=== PATIENT | female | born 1940 | race Caucasian/White ===

== ENCOUNTER 2016-07-25 15:00 | Inpatient (IN) ==
[2016-07-25] MEDS ORDERED: 0.9 % SODIUM CHLORIDE 1,000 ML IV ONE ×2 (15:16→16:07)
[2016-07-25] MEDS ORDERED: ONDANSETRON 4 MG/2 ML VIAL IV ONE (15:21)
[2016-07-25 15:48] LABS: Mean Corpuscular HGB Conc 33.6 g/dL (31.0-36.0); Mean Corpuscular Hemoglobin 29.2 pg (26.0-34.0); Platelet Count 246 K/mcL (140-440); RBC 4.39 M/mcL (4.00-5.20); Red Cell Distribution Width 13.4 % (11.5-14.5)
[2016-07-25] MEDS ORDERED: OSELTAMIVIR PHOSPHATE 75 MG CAPSULE PO ONE (15:58)
--- NOTE | 2016-07-25 16:06 | Emergency Department Note ---
Weakness HPI - General Chief complaint: Weakness Stated complaint: sob, cough, nausea Time Seen by Provider: 07/25/16 16:03 Source: patient Mode of arrival: wheelchair Limitations: no limitations - History of Present Illness HPI Narrative: 76-year-old female states that she started feeling achy and feverish since 4 days ago. She states she had a mild cold. The week prior. Now she is showing achy and unable to get out of bed. Due to the weakness. PT is having some cough. Has had some fever and chills, achiness CURRENT TEMPERATURE IS 99.3. - Related Data Home Medications Medication Instructions Recorded Confirmed aspirin 81 mg tablet,delayed 162 mg PO QDAY tab 03/14/15 01/29/16 release losartan 50 mg tablet 50 mg PO DAILY tab 03/14/15 01/29/16 multivitamin tablet 1 tab PO DAILY tab 03/14/15 01/29/16 omeprazole 20 mg capsule,delayed 20 mg PO ACB cap 03/14/15 01/29/16 release sertraline 50 mg tablet 50 mg PO DAILY tab 03/14/15 01/29/16 Diltiazem [Cardizem Cd] 120 mg PO DAILY 10/12/15 01/29/16 Gabapentin [Neurontin] 300 mg PO HS 10/12/15 01/29/16 L.acidoph,Paracasei, B.lactis 1 each PO DAILY 10/12/15 01/29/16 [Probiotic] Loperamide [Imodium] 2 mg PO PRN PRN 10/12/15 01/29/16 Thyroid Support 1 cap PO DAILY 10/12/15 01/29/16 Vitamin D3 5,000 unit PO DAILY 10/12/15 01/29/16 Bactrim Ds Tablet 1 tablet PO BID 10/16/15 01/29/16 Previous Rx's Medication Instructions Recorded Aspirin 320 mg PO DAILY #30 tab.chew 10/17/15 Docusate Sodium [Colace] 100 mg PO BID #60 capsule 10/17/15 HYDROcodone/APAP 10/325MG [[place] 1 - 2 tab PO Q4HP PRN #90 tablet 10/17/15 10/325Mg] Allergies Allergy/AdvReac Type Severity Reaction Status Date / Time lidocaine [LIDOCAINE] AdvReac Severe CRAZY Verified 01/29/16 20:21 Beta-Blockers AdvReac Intermediate intolerance Verified 01/29/16 20:21 (Beta-Adrenergic Bloc digoxin [From Lanoxin] AdvReac Intermediate intolerance Verified 01/29/16 20:21 epinephrine AdvReac Intermediate tachycardia Verified 01/29/16 20:21 ezetimibe [From Zetia] AdvReac Intermediate Intolerance Verified 01/29/16 20:21 hydrocodone [HYDROCODONE] AdvReac Intermediate Gastrointestinal Verified 20:21 Upset indapamide [From Lozol] AdvReac Intermediate Intolerance Verified 01/29/16 20:21 methyldopa [From Aldomet] AdvReac Intermediate Intolerance Verified 01/29/16 20: 21 ramipril [From Altace] AdvReac Intermediate vertigo Verified 01/29/16 20:21 Review of Systems Constitutional: Reports: fever, chills Eyes: Denies: eye pain ENT ED: Denies: ear pain Cardiovascular: Denies: chest pain Respiratory: Reports: cough. Denies: dyspnea Gastrointestinal: Denies: abdominal pain Genitourinary: Denies: urgency, dysuria Musculoskeletal: Denies: back pain Integumentary: Denies: rash Neurological: Reports: weakness. Denies: headache, numbness, paresthesias, confusion, abnormal gait, vertigo Psychiatric: Denies: anxiety, depression Endocrine: Denies: fatigue Hematological/Lymphatic: Denies: easy bleeding Allergic/Immunologic: Denies: facial swelling Past Medical History - Past Medical History Medical history: Reports: atrial fibrillation, hyperlipidemia, hypertension, other (spinal stenosis) Surgical history ED: Reports: angioplasty/stent, hysterectomy, orthopedic, other (several shoulder surgeries) Physical Exam - General Limitations: no limitations Course Vital Signs Temperature 99.3 F 07/25/16 15:00 Pulse Rate 66 07/25/16 15:00 Respiratory Rate 16 07/25/16 15:00 Blood Pressure 120/67 07/25/16 15:00 Pulse Oximetry (%) 96 07/25/16 15:00 Temperature 99.3 F 07/25/16 15:00 Pulse Rate 61 07/25/16 16:49 Respiratory Rate 16 07/25/16 15:00 Blood Pressure 129/67 07/25/16 16:49 Pulse Oximetry (%) 94 07/25/16 16:02 Weakness - MDM Narrative Medical decision making narrative: Influenza test is positive. Influenza A and the WBC is 5100 chem panel normal. S x-ray normal. Vital signs stable. Lactic acid 1.3. The states she is too weak, unable to get out of bed. Dr. Rascon contacted. Patient minute for observation. Influenza A - Lab Data Result diagrams: 07/25/16 15:20 07/25/16 15:20 Lab Results 07/25/16 07/25/16 07/25/16 Range/Units 15:20 15:20 15:20 WBC 5.1 (4.5-11.0) K/mcL RBC 4.39 (4.00-5.20) M/mcL Hgb 12.8 (12.0-15.0) g/dL Hct 38.2 (36.0-48.0) % MCV 87.0 (80.0-100.0) fL MCH 29.2 (26.0-34.0) pg MCHC 33.6 (31.0-36.0) g/dL RDW 13.4 (11.5-14.5) % Plt Count 246 (140-440) K/mcL MPV 8.0 (7.4-10.4) fL Total Counted 100 Seg Neutrophils % 53 (38-78) % Band Neutrophils % 15 H (0-10) % Lymphocytes % 23 (15-49) % Monocytes % (Manual) 7 (1-9) % Eosinophils % (Manual) 1 (0-7) % Basophils % (Manual) 1 (0-2) % Platelet Estimate Normal (NORMAL) RBC Morphology Normal (NORMAL) VBG Lactic Acid 1.3 (0.5-2.2) mmol/L Sodium 134 (133-145) mmol/L Potassium 4.1 (3.3-5.1) mmol/L Chloride 96 (96-108) mmol/L Carbon Dioxide 24 (22-30) mmol/L Anion Gap 14.0 (8-16) BUN 10 (8-23) mg/dl Creatinine 1.0 (0.6-1.1) mg/dl GFR Calculation 55 Glucose 120 H (70-105) mg/dL Calcium 9.1 (8.6-10.4) mg/dl Total Bilirubin 0.3 (0.0-1.0) mg/dL AST 19 (0-37) U/l ALT 11 (0-40) U/l Alkaline Phosphatase 80 (39-117) U/L Total Protein 7.4 (5.9-8.4) gm/dL Albumin 4.0 (3.2-5.2) gm/dL Globulin 3.4 (2.2-3.7) gm/dL Albumin/Globulin Ratio 1.2 (1.0-2.3) Disposition Clinical Impression: Influenza A Disposition: Xfer As Outpt/Obs ([facility]) Condition: Good Referrals: Melvin Hudson MD [Primary Care Provider] -
[2016-07-25 16:10] LABS: ALT/SGPT 11 U/l (0-40); Albumin/Globulin Ratio 1.2 (1.0-2.3); Alkaline Phosphatase 80 U/L (39-117); Blood Urea Nitrogen 10 mg/dl (8-23)
[2016-07-25 16:19] LABS: Band Neutrophils % 15 % (0-10); Basophils % (Manual) 1 % (0-2); Eosinophils % (Manual) 1 % (0-7); Lymphocytes % 23 % (15-49); Monocytes % (Manual) 7 % (1-9); Platelet Estimate NORMAL (NORMAL); RBC Morphology NORMAL (NORMAL); Segmented Neutrophils % 53 % (38-78)
--- NOTE | 2016-07-25 16:29 | XRay Report ---
CLINICAL INFORMATION: Cough COMPARISON: 03/16/2014 FINDINGS: Mild cardiomegaly is unchanged. Mediastinum and pulmonary vessels are normal. Is minor bibasilar atelectasis - no infiltrates or effusions IMPRESSION: No acute disease. Interpreted and Authenticated by: Joe Dave 07/25/16
[2016-07-25] MEDS: 0.9 % SODIUM CHLORIDE 1,000 ML IV SCH (18:40)
[2016-07-25 18:56] LABS: Appearance,Urine CLEAR; Bacteria,Urine MOD /hpf (0); Bilirubin,Urine NEG (NEG); Color,Urine STRAW; Glucose,Urine (UA) NEGATIVE (NEG); Leukocyte Esterase,Urine 250 /uL (NEG); Mucus,Urine FEW /hpf (0); Nitrate,Urine NEG (NEG); Protein,Urine NEG (NEG); Specific Gravity,Urine 1.002 (1.000-1.035); Urine Blood 0.03 mg/dL (<0.03); Urine RBC < 1 /hpf (0-1); Urine Squamous Epithelial Cell 1 /hpf (0-4); Urine Transitional Epi Cells < 1 /hpf (0-2); Urine WBC 18 /hpf (0-4); Urobilinogen,Urine NEG (NEG)
[2016-07-25] MEDS ORDERED: LOPERAMIDE 2 MG CAPSULE PO PRN (20:18)
[2016-07-25] MEDS: GABAPENTIN 100 MG CAPSULE PO SCH (21:07)
[2016-07-25] MEDS: cefTRIAXone 2 GM in DEXTROSE 5% IN WATER 50 ML IV SCH (22:42)
[2016-07-25] MEDS: ACETAMINOPHEN 325 MG TABLET PO PRN (23:41)
--- NOTE | 2016-07-26 00:48 | History and Physical Report ---
DATE OF ADMISSION: 07/25/2016 PRIMARY CARE PHYSICIAN: Melvin Hudson MD DATE OF ADMISSION: 07/25/2016 REASON FOR ADMISSION: Weakness, diarrhea, shortness of breath, cough and fever. HISTORY OF CHIEF COMPLAINT: The patient is a 76-year-old who lives with her , Andres, in [place] and was in her baseline state of health until roughly 2 weeks prior to presentation, noticed worsening weakness, myalgia, fever, along with also diarrhea. The patient had a sick contact including her and [id number]. Over the next 7 to 10 days the patient has progressively deteriorated to the point she is barely able to function, unable to get out of bed and perform activities of daily living. She has associated cough, dyspnea, along with multiple joint pain. She denies dysuria, headache, photophobia. She further denies abdominal pain, nausea, chest pain, palpitation, with increasing weakness. She came to [facility] Emergency Room. Initial workup was significant for influenza A positive. However, labs were essentially unremarkable except for mild bandemia at 15 percent and a normal biochemical profile. Hospitalist Service was consulted in light of significant deterioration over the last 10 days and high risk decompensation if discharged. At the time of examination, the patient is alert and oriented. She is able to provide most of the history. She is slightly distressed, anxious. REVIEW OF SYSTEMS: Other than that, a 10-point review of system was performed and negative except the ones discussed above. PAST MEDICAL HISTORY: 1. Anxiety disorder. 2. Hypertension. 3. Neuropathy. 4. GERD. 5. Intermittent diarrhea. PAST SURGICAL HISTORY: 1. History of arthroscopy, right shoulder. 2. Hysterectomy. FAMILY HISTORY: Significant for emphysema in mother along with arthritis along with hypertension. Sibling with coronary artery disease and hypertension. SOCIAL HISTORY: The patient is to her , Andres, and lives in [place]. She is retired. No history of alcohol, smoking, substance abuse. CODE STATUS: FULL CODE. PHYSICAL EXAMINATION: GENERAL: The patient is alert and oriented. Denies any active distress. BMI 30. Height 5 feet. VITAL SIGNS: Blood pressure 129/59, respiratory rate 16, temperature 99.3, pulse 66, sats 96 percent on room air. HEENT: Pupils symmetric. Oral cavity is dry. No ear or nose discharge. Head is normocephalic and atraumatic. NECK: No lymphadenopathy. HEART: S1, S2, regular rate and rhythm. No murmur. CHEST: Clear to auscultation. ABDOMEN: Soft and nontender. LOWER EXTREMITIES: No cyanosis or clubbing. No joint swelling. SKIN: No suspicious lesions. PSYCHIATRIC: Alert and cooperative. No anxiety. NEURO: Nonfocal. LABS AND IMAGING: Hemoglobin 12.8, white count 5.1, platelets 246, bands 15 percent. Lactic acid 1.3. Sodium 134, potassium 4.1, creatinine 1, and BUN 10. LFTs unremarkable. UA: 18 WBCs. ASSESSMENT AND PLAN: A 76-year-old with influenza A and significant weakness along with complicated urinary tract infection. 1. Influenza A. Continue supportive management with crystalloids, antipyretics, along with Tamiflu. 2. Complicated urinary tract infection. Continue Rocephin. 3. Severe weakness due to acute viral syndrome. Other prior medical issues, includin. History of anxiety disorder. Continue sertraline. 2. Hypertension. Continue diltiazem. 3. Neuropathy. Continue gabapentin. 4. Gastroesophageal reflux disease. Continue proton pump inhibitor. The patient will be admitted as observation. AA:devyn Job ID: [id number] Doc ID: [id number] Luisito Hudson MD MTDD
[2016-07-26] MEDS: PANTOPRAZOLE 40 MG TABLET PO SCH (08:17)
[2016-07-26] MEDS: ASPIRIN 325 MG ENTERIC COATED TABLET PO SCH (09:43)
[2016-07-26] MEDS: SERTRALINE 50 MG TABLET PO SCH (09:43)
[2016-07-26] MEDS: DILTIAZEM 120 MG CAP.XL.24H PO SCH (09:43)
[2016-07-26] MEDS: OSELTAMIVIR PHOSPHATE 75 MG CAPSULE PO SCH ×2 (09:43→20:46)
[2016-07-26] MEDS: LOSARTAN 50 MG TABLET PO SCH (09:43)
--- NOTE | 2016-07-26 10:49 | Internal Med Progress Note ---
Medical - PN: Subj Patient information: Note initiated : 07/26/16 at 10:47 am Service Date, if different from initiated Date: [] Patient: Cindy Toledo 76 y/o F admitted on 07/25/16 for SOB, Cough, Nausea/ Influenza A, Weakness, UTI. Chief Complaint: [] Interval history: 07/255-90-ncho-old admitted with acute influenza and complicated UTI with high- grade fever and weakness. started on Tamiflu. Continue antibiotic coverage for UTI. On supportive management 07/26-patient doing better. No overnight events. Improved mentation and tolerating physical therapy and diet. No family at bedside. Continue supportive treatment along with physical therapy. GNR on cultures. - Constitutional Vitals: Vital Signs Temp Pulse Resp BP Pulse Ox 101.5 F H 82 16 118/80 95 07/26/16 10:07 07/26/16 07:07 07/26/16 07:07 07/26/16 07:07 07/26/16 09:51 Period Temp Pulse Resp BP Sys/Egan Pulse Ox Last 24 Hr 99.1 F-102.7 F 60-82 16-18 118-145/73-80 2-98 Intake and Output 07/25/16 07/26/16 07/26/16 21:59 05:59 13:59 Intake Total 400 / 400 920 / 920 Output Total 300 / 300 550 / 550 800 / 800 Balance -300 / -300 -150 / -150 120 / 120 Weight 155 lb 8 oz Intake & Output: Intake & Output 07/25/16 07/26/16 07/26/16 21:59 05:59 13:59 Intake Total 400 / 400 920 / 920 Output Total 300 / 300 550 / 550 800 / 800 Balance -300 / -300 -150 / -150 120 / 120 Weight 155 lb 8 oz Intake: IV 50 / 50 Dextrose 5% in Water 50 50 / 50 ml @ 100 mls/hr IV DAILY HERNANDEZ with Rocephin 2 gm Rx #:[id number] Oral 350 / 350 920 / 920 Output: Void Amount 300 / 300 550 / 550 800 / 800 Other: Meal Breakfast Percent of Meal Consumed 75% Feeding Ability Independent # Voids 1 3 General appearance: cooperative, no acute distress Exam: lert oriented nonlabored breathing No anxiety Nondistended abdomen Medical - PN: Obj Da - Labs CBC & Chem 7: 07/25/16 15:20 07/25/16 15:20 Meds: Medications Acetaminophen (Tylenol) 650 mg PO Q6HP PRN PRN Reason: PAIN/FEVER > 101 Last Admin: 07/25/16 23:41 Dose: 650 mg Aspirin (Ecotrin) 325 mg PO DAILY [facility] Last Admin: 07/26/16 09:43 Dose: 325 mg Diltiazem HCl (Cardizem Cd) 120 mg PO DAILY [facility] Last Admin: 07/26/16 09:43 Dose: 120 mg Gabapentin (Neurontin) 400 mg PO HS [facility] Last Admin: 07/25/16 21:07 Dose: 400 mg Sodium Chloride (Sodium Chloride 0.9%) 1,000 mls @ 50 mls/hr IV .Q20H [facility] Last Admin: 07/25/16 18:40 Dose: 50 mls/hr Ceftriaxone Sodium 2 gm/ (Dextrose) 50 mls @ 100 mls/hr IV DAILY [facility] Last Infusion: 07/25/16 23:20 Dose: Infused Loperamide HCl (Imodium) 2 mg PO PRN PRN PRN Reason: Diarrhea Last Admin: 07/25/16 21:07 Dose: 2 mg Losartan Potassium (Cozaar) 50 mg PO DAILY [facility] Last Admin: 07/26/16 09:43 Dose: 50 mg Oseltamivir Phosphate (Tamiflu) 75 mg PO BID [facility] Stop: 07/31/16 21:00 Last Admin: 07/26/16 09:43 Dose: 75 mg Pantoprazole Sodium (Protonix) 40 mg PO QAMAC [facility] Last Admin: 07/26/16 08:17 Dose: 40 mg Sertraline HCl (Zoloft) 50 mg PO DAILY [facility] Last Admin: 07/26/16 09:43 Dose: 50 mg Medical - PN: A/P - Time Spent With Patient Total time spent is greater than 50% in coordination of care (as documented) at patient's floor/unit and/or counseling patient: 15 - 24 minutes (1) Acute viral syndrome Status: Acute Assessment and plan: * acute viral syndrome secondary to influenza A-continue Tamiflu/supportive management * Complicated UTI secondary to gram-negative sil continue antibiotic coverage. De-escalate based on culture results * Anxiety disorder continue sertraline * Hypertension on diltiazem/valsartan * neuropathy on gabapentin Plan * Antibiotic coverage and de-escalate based on cultures * supportive management/antipyretics/Tamiflu * Pre-existing medical condition management as above * Physical therapy Current Visit: Yes Medical - PN: Qual - VTE Deep Vein Thrombosis/Pulmonary Embolism Present on Admission: No
[2016-07-26] MEDS: cefTRIAXone 2 GM in DEXTROSE 5% IN WATER 50 ML IV SCH (15:05)
[2016-07-26] MEDS: 0.9 % SODIUM CHLORIDE 1,000 ML IV SCH (15:05)
[2016-07-26] MEDS: GABAPENTIN 100 MG CAPSULE PO SCH (20:46)
[2016-07-27 06:54] LABS: Mean Cell Volume 88.7 fL (80.0-100.0); Mean Corpuscular HGB Conc 33.1 g/dL (31.0-36.0); Mean Corpuscular Hemoglobin 29.3 pg (26.0-34.0); Platelet Count 185 K/mcL (140-440); RBC 3.81 M/mcL (4.00-5.20); Red Cell Distribution Width 13.4 % (11.5-14.5)
[2016-07-27 07:23] LABS: ALT/SGPT 8 U/l (0-40); Albumin 3.4 gm/dL (3.2-5.2); Albumin/Globulin Ratio 1.4 (1.0-2.3); Alkaline Phosphatase 63 U/L (39-117); Bilirubin,Direct < 0.2 mg/dL (0.0-0.3); Blood Urea Nitrogen 11 mg/dl (8-23); Gamma Glutamyl Transpeptidase 8 U/L (5-36); Magnesium 1.9 mg/dL (1.6-2.5); Phosphorous 3.8 mg/dL (2.7-4.5); Uric Acid 3.9 mg/dL (2.5-8.0)
[2016-07-27] MEDS: PANTOPRAZOLE 40 MG TABLET PO SCH (07:32)
[2016-07-27 08:06] LABS: Band Neutrophils % 11 % (0-10); Basophils % (Manual) 1 % (0-2); Eosinophils % (Manual) 5 % (0-7); Lymphocytes % 36 % (15-49); Monocytes % (Manual) 9 % (1-9); Platelet Estimate NORMAL (NORMAL); RBC Morphology NORMAL (NORMAL); Segmented Neutrophils % 38 % (38-78)
[2016-07-27] MEDS: LOSARTAN 50 MG TABLET PO SCH (09:06)
[2016-07-27] MEDS: SERTRALINE 50 MG TABLET PO SCH (09:07)
[2016-07-27] MEDS: OSELTAMIVIR PHOSPHATE 75 MG CAPSULE PO SCH ×2 (09:07→21:14)
[2016-07-27] MEDS: cefTRIAXone 2 GM in DEXTROSE 5% IN WATER 50 ML IV SCH (09:08)
[2016-07-27] MEDS: ASPIRIN 325 MG ENTERIC COATED TABLET PO SCH (09:08)
[2016-07-27] MEDS: DILTIAZEM 120 MG CAP.XL.24H PO SCH (09:13)
[2016-07-27] MEDS: 0.9 % SODIUM CHLORIDE 1,000 ML IV SCH ×2 (09:14→12:34)
[2016-07-27] MEDS: ACETAMINOPHEN 325 MG TABLET PO PRN (15:58)
--- NOTE | 2016-07-27 18:55 | Internal Med Progress Note ---
Medical - PN: Subj Patient information: Note initiated : 07/27/16 at 6:54 pm Service Date, if different from initiated Date: [] Patient: Cindy Toledo 76 y/o F admitted on 07/26/16 for SOB, Cough, Nausea/ Influenza A, Weakness, UTI. Chief Complaint: [] Interval history: 07/255-44-qkyl-old admitted with acute influenza and complicated UTI with high- grade fever and weakness. started on Tamiflu. Continue antibiotic coverage for UTI. On supportive management 07/26-patient doing better. No overnight events. Improved mentation and tolerating physical therapy and diet. No family at bedside. Continue supportive treatment along with physical therapy. GNR on cultures. 07/27- patient doing well. Feeling a lot better. Persistent weakness. Klebsiella pneumoniae on cultures multidrug resistant sensitive to ceftriaxone. patient is requesting home health. No overnight fever chills nausea vomiting or concerns per staff - Constitutional Vitals: Vital Signs Temp Pulse Resp BP Pulse Ox 98.4 F 68 20 130/80 96 07/27/16 16:42 07/27/16 12:00 07/27/16 16:42 07/27/16 16:42 07/27/16 16:42 Period Temp Pulse Resp BP Sys/Egan Pulse Ox Last 24 Hr 97.8 F-98.4 F 50-68 12-20 128-167/70-80 94-98 Intake and Output 07/27/16 07/27/16 07/27/16 05:59 13:59 21:59 Intake Total 450 / 450 1050 / 1050 750 / 750 Output Total 575 / 575 1275 / 1275 300 / 300 Balance -125 / -125 -225 / -225 450 / 450 Weight 156 lb 8 oz Patient Weight 07/28/16 05:59 Weight 156 lb 8 oz Intake & Output: Intake & Output 07/27/16 07/27/16 07/27/16 05:59 13:59 21:59 Intake Total 450 / 450 1050 / 1050 750 / 750 Output Total 575 / 575 1275 / 1275 300 / 300 Balance -125 / -125 -225 / -225 450 / 450 Weight 156 lb 8 oz Intake: IV 1050 / 1050 Sodium Chloride 0.9% 1, 1000 / 1000 000 ml @ 50 mls/hr IV . Q20H HERNANDEZ Rx#:[id number] Dextrose 5% in Water 50 50 / 50 ml @ 100 mls/hr IV DAILY HERNANDEZ with Rocephin 2 gm Rx #:[id number] Oral 450 / 450 750 / 750 Output: Void Amount 575 / 575 1275 / 1275 300 / 300 Other: Meal Dinner Percent of Meal Consumed 100% General appearance: cooperative, no acute distress Exam: nonlabored breathing No anxiety Alert oriented nondistended abdomen Medical - PN: Obj Da - Labs CBC & Chem 7: 07/28/16 05:16 07/28/16 05:16 Labs: Abnormal Lab Results 07/27/16 07/27/16 04:49 04:49 WBC 4.4 L RBC 3.81 L Hgb 11.2 L Hct 33.8 L Band Neutrophils % 11 H Calcium 8.3 L Total Protein 5.8 L Meds: Medications Acetaminophen (Tylenol) 650 mg PO Q6HP PRN PRN Reason: PAIN/FEVER > 101 Last Admin: 07/27/16 15:58 Dose: 325 mg Aspirin (Ecotrin) 325 mg PO DAILY [facility] Last Admin: 07/27/16 09:08 Dose: 325 mg Diltiazem HCl (Cardizem Cd) 120 mg PO DAILY [facility] Last Admin: 07/27/16 09:13 Dose: Not Given Gabapentin (Neurontin) 400 mg PO [facility] Last Admin: 07/26/16 20:46 Dose: 400 mg Sodium Chloride (Sodium Chloride 0.9%) 1,000 mls @ 50 mls/hr IV .Q20H [facility] Last Admin: 07/27/16 12:34 Dose: 50 mls/hr Ceftriaxone Sodium 2 gm/ (Dextrose) 50 mls @ 100 mls/hr IV DAILY [facility] Last Infusion: 07/27/16 09:45 Dose: Infused Loperamide HCl (Imodium) 2 mg PO PRN PRN PRN Reason: Diarrhea Last Admin: 07/25/16 21:07 Dose: 2 mg Losartan Potassium (Cozaar) 50 mg PO DAILY [facility] Last Admin: 07/27/16 09:06 Dose: 50 mg Oseltamivir Phosphate (Tamiflu) 75 mg PO BID [facility] Stop: 07/31/16 21:00 Last Admin: 07/27/16 09:07 Dose: 75 mg [facility] Last Admin: 07/27/16 07:32 Dose: 40 mg Sertraline HCl (Zoloft) 50 mg PO DAILY [facility] Last Admin: 07/27/16 09:07 Dose: 50 mg Medical - PN: A/P - Time Spent With Patient Total time spent is greater than 50% in coordination of care (as documented) at patient's floor/unit and/or counseling patient: 25 - 35 minutes (1) Acute viral syndrome Status: Acute Assessment and plan: * Acute viral syndrome secondary to influenza A- Clinical improvement noted on Tamiflu/supportive management * Complicated Klebsiella UTI -continue Rocephin * Anxiety disorder stable on sertraline * Hypertension on diltiazem/valsartan * neuropathy on gabapentin Plan * continue Rocephin * supportive management/antipyretics/Tamiflu * Pre-existing medical condition management as above * schedule home health physical therapy on discharge Current Visit: Yes Medical - PN: Qual - VTE Deep Vein Thrombosis/Pulmonary Embolism Present on Admission: No
[2016-07-27] MEDS: DOCUSATE SODIUM 100 MG CAPSULE PO SCH (21:14)
[2016-07-27] MEDS: GABAPENTIN 100 MG CAPSULE PO SCH (21:15)
[2016-07-28 06:58] LABS: Mean Cell Volume 86.6 fL (80.0-100.0); Mean Corpuscular HGB Conc 33.5 g/dL (31.0-36.0); Mean Corpuscular Hemoglobin 29.1 pg (26.0-34.0); Platelet Count 181 K/mcL (140-440); RBC 4.01 M/mcL (4.00-5.20); Red Cell Distribution Width 12.9 % (11.5-14.5)
[2016-07-28 08:10] LABS: ALT/SGPT 9 U/l (0-40); Albumin 3.4 gm/dL (3.2-5.2); Albumin/Globulin Ratio 1.3 (1.0-2.3); Alkaline Phosphatase 61 U/L (39-117); Bilirubin,Direct < 0.2 mg/dL (0.0-0.3); Blood Urea Nitrogen 13 mg/dl (8-23); Gamma Glutamyl Transpeptidase 9 U/L (5-36); Magnesium 1.9 mg/dL (1.6-2.5); Phosphorous 3.6 mg/dL (2.7-4.5); Uric Acid 4.5 mg/dL (2.5-8.0)
[2016-07-28] MEDS: 0.9 % SODIUM CHLORIDE 1,000 ML IV SCH (08:37)
[2016-07-28] MEDS: PANTOPRAZOLE 40 MG TABLET PO SCH (08:39)
[2016-07-28] MEDS: SERTRALINE 50 MG TABLET PO SCH (08:39)
[2016-07-28] MEDS: DOCUSATE SODIUM 100 MG CAPSULE PO SCH ×2 (08:39→20:55)
[2016-07-28] MEDS: LOSARTAN 50 MG TABLET PO SCH (08:39)
[2016-07-28] MEDS: ASPIRIN 325 MG ENTERIC COATED TABLET PO SCH (08:39)
[2016-07-28] MEDS: OSELTAMIVIR PHOSPHATE 75 MG CAPSULE PO SCH ×2 (08:40→20:55)
[2016-07-28] MEDS: DILTIAZEM 120 MG CAP.XL.24H PO SCH (08:47)
[2016-07-28 08:53] LABS: Band Neutrophils % 10 % (0-10); Eosinophils % (Manual) 5 % (0-7); Lymphocytes % 43 % (15-49); Monocytes % (Manual) 2 % (1-9); Platelet Estimate NORMAL (NORMAL); RBC Morphology NORMAL (NORMAL); Segmented Neutrophils % 37 % (38-78)
--- NOTE | 2016-07-28 09:43 | Internal Med Progress Note ---
Medical - PN: Subj Patient information: Note initiated : 07/28/16 at 9:42 am Service Date, if different from initiated Date: [] Patient: Cindy Toledo 76 y/o F admitted on 07/26/16 for SOB, Cough, Nausea/ Influenza A, Weakness, UTI. Chief Complaint: [] Interval history: 07/259-75-ckpr-old admitted with acute influenza and complicated UTI with high- grade fever and weakness. started on Tamiflu. Continue antibiotic coverage for UTI. On supportive management 07/26-patient doing better. No overnight events. Improved mentation and tolerating physical therapy and diet. No family at bedside. Continue supportive treatment along with physical therapy. GNR on cultures. 07/27- patient doing well. Feeling a lot better. Persistent weakness. Klebsiella pneumoniae on cultures multidrug resistant sensitive to ceftriaxone. patient is requesting home health. No overnight fever chills nausea vomiting or concerns per staff 07/28- patient undergoing physical therapy. Afebrile. Ongoing antibiotic coverage. Possible discharge in 24 hours with home health. No active concerns per patient or staff. - Constitutional Vitals: Vital Signs Temp Pulse Resp BP Pulse Ox 97.8 F 54 L 12 162/90 96 07/28/16 07:54 07/28/16 04:00 07/28/16 07:54 07/28/16 07:54 07/28/16 07:54 Period Temp Pulse Resp BP Sys/Egan Pulse Ox Last 24 Hr 97.2 F-98.4 F 54-68 12-20 128-168/70-90 95-98 Intake and Output 07/27/16 07/28/16 07/28/16 21:59 05:59 13:59 Intake Total 750 / 750 250 / 250 Output Total 800 / 800 250 / 250 850 / 850 Balance -50 / -50 0 / 0 -850 / -850 Weight 157 lb 8 oz Intake & Output: Intake & Output 07/27/16 07/28/16 07/28/16 21:59 05:59 13:59 Intake Total 750 / 750 250 / 250 Output Total 800 / 800 250 / 250 850 / 850 Balance -50 / -50 0 / 0 -850 / -850 Weight 157 lb 8 oz Intake: Oral 750 / 750 250 / 250 Output: Void Amount 800 / 800 250 / 250 850 / 850 Other: Meal Dinner Percent of Meal Consumed 100% General appearance: cooperative, no acute distress Exam: Alert oriented Nonlabored breathing Ongoing physical therapy No anxiety Medical - PN: Obj Da - Labs CBC & Chem 7: 07/28/16 05:16 07/28/16 05:16 Labs: Abnormal Lab Results 07/28/16 07/28/16 07/27/16 05:16 05:16 04:49 WBC 4.0 L RBC Hgb 11.7 L Hct 34.8 L Seg Neutrophils % 37 L Band Neutrophils % Reactive Lymphocytes 3 H Calcium 8.4 L 8.3 L Total Protein 5.8 L Triglycerides 236 H 07/27/16 04:49 WBC 4.4 L RBC 3.81 L Hgb 11.2 L Hct 33.8 L Seg Neutrophils % Band Neutrophils % 11 H Reactive Lymphocytes Calcium Total Protein Triglycerides Meds: Medications Acetaminophen (Tylenol) 650 mg PO Q6HP PRN PRN Reason: PAIN/FEVER > 101 Last Admin: 07/27/16 15:58 Dose: 325 mg Aspirin (Ecotrin) 325 mg PO DAILY [facility] Last Admin: 07/28/16 08:39 Dose: 325 mg Diltiazem HCl (Cardizem Cd) 120 mg PO DAILY [facility] Last Admin: 07/28/16 08:47 Dose: Not Given Docusate Sodium (Colace) 100 mg PO BID [facility] Last Admin: 07/28/16 08:39 Dose: 100 mg Gabapentin (Neurontin) 400 mg PO HS [facility] Last Admin: 07/27/16 21:15 Dose: 400 mg Ceftriaxone Sodium 2 gm/ (Dextrose) 50 mls @ 100 mls/hr IV DAILY [facility] Last Infusion: 07/27/16 09:45 Dose: Infused Loperamide HCl (Imodium) 2 mg PO PRN PRN PRN Reason: Diarrhea Last Admin: 07/25/16 21:07 Dose: 2 mg Losartan Potassium (Cozaar) 50 mg PO DAILY [facility] Last Admin: 07/28/16 08:39 Dose: 50 mg Oseltamivir Phosphate (Tamiflu) 75 mg PO BID [facility] Stop: 07/31/16 21:00 Last Admin: 07/28/16 08:40 Dose: 75 mg Pantoprazole Sodium (Protonix) 40 mg PO QAMAC [facility] Last Admin: 07/28/16 08:39 Dose: 40 mg Sertraline HCl (Zoloft) 50 mg PO DAILY [facility] Last Admin: 07/28/16 08:39 Dose: 50 mg Medical - PN: A/P - Time Spent With Patient Total time spent is greater than 50% in coordination of care (as documented) at patient's floor/unit and/or counseling patient: 15 - 24 minutes (1) Acute viral syndrome Status: Acute Assessment and plan: * Acute viral syndrome secondary to influenza A- clinical resolution noted * Complicated Klebsiella UTI -clinically improved on Rocephin. Continue antibiotics through 05/30 to cover 7 days * Anxiety disorder stable on sertraline * Hypertension stable on diltiazem/valsartan * neuropathy on gabapentin Plan * continue antibiotics through 05/30 * continue supportive management/antipyretics/Tamiflu * ossible discharge in 24 hours with home health Current Visit: Yes Medical - PN: Qual - VTE Deep Vein Thrombosis/Pulmonary Embolism Present on Admission: No
[2016-07-28] MEDS: cefTRIAXone 2 GM in DEXTROSE 5% IN WATER 50 ML IV SCH (09:58)
[2016-07-28] MEDS: GABAPENTIN 100 MG CAPSULE PO SCH (20:55)
[2016-07-29 07:14] LABS: Mean Cell Volume 86.4 fL (80.0-100.0); Mean Corpuscular HGB Conc 33.3 g/dL (31.0-36.0); Mean Corpuscular Hemoglobin 28.8 pg (26.0-34.0); Platelet Count 193 K/mcL (140-440); Red Cell Distribution Width 12.5 % (11.5-14.5)
[2016-07-29 07:45] LABS: ALT/SGPT 8 U/l (0-40); Albumin 3.7 gm/dL (3.2-5.2); Albumin/Globulin Ratio 1.5 (1.0-2.3); Alkaline Phosphatase 63 U/L (39-117); Bilirubin,Direct < 0.2 mg/dL (0.0-0.3); Blood Urea Nitrogen 11 mg/dl (8-23); Gamma Glutamyl Transpeptidase 10 U/L (5-36); Phosphorous 3.4 mg/dL (2.7-4.5); Uric Acid 4.7 mg/dL (2.5-8.0)
[2016-07-29] MEDS: PANTOPRAZOLE 40 MG TABLET PO SCH (07:50)
[2016-07-29] MEDS: ASPIRIN 325 MG ENTERIC COATED TABLET PO SCH (09:05)
[2016-07-29] MEDS: LOSARTAN 50 MG TABLET PO SCH (09:05)
[2016-07-29] MEDS: DILTIAZEM 120 MG CAP.XL.24H PO SCH (09:05)
[2016-07-29] MEDS: SERTRALINE 50 MG TABLET PO SCH (09:05)
[2016-07-29] MEDS: OSELTAMIVIR PHOSPHATE 75 MG CAPSULE PO SCH (09:05)
[2016-07-29] MEDS: DOCUSATE SODIUM 100 MG CAPSULE PO SCH (09:05)
[2016-07-29 09:31] LABS: Band Neutrophils % 7 % (0-10); Basophils % (Manual) 1 % (0-2); Eosinophils % (Manual) 7 % (0-7); Lymphocytes % 51 % (15-49); Monocytes % (Manual) 7 % (1-9); Platelet Estimate NORMAL (NORMAL); RBC Morphology NORMAL (NORMAL); Segmented Neutrophils % 27 % (38-78)
--- NOTE | 2016-07-29 09:48 | Discharge Summary ---
Medical - DS: Prov Patient information: Note initiated : 07/29/16 at 9:46 am Service Date, if different from initiated Date: [] Patient: Cindy Toledo 76 y/o F admitted on 07/26/16 for SOB, Cough, Nausea/ Influenza A, Weakness, UTI. Chief Complaint: [] Date of admission: 07/26/16 10:39 Discharge date: 07/29/16 Primary care physician: [f_Reg Prim Care Provider] Medical - DS: Meds - Discharge Medications Prescriptions: Cefdinir 300 mg PO BID #6 capsule Oseltamivir Phosphate [Tamiflu] 75 mg PO BID #4 capsule Active and Home Medications: Home Medications Cefdinir 300 mg PO BID #6 capsule 07/29/16 [Rx Last Taken Unknown] Medical - DS: Hosp Hospital course: DISCHARGE DIAGNOSES * Acute viral syndrome secondary to influenza A- Clinically resolved. Continue Tamiflu for additional 24 hours * Complicated Klebsiella UTI -clinically improved on Rocephin. continue oral third-generation cephalosporin for additional 3 days * Anxiety disorder stable on sertraline * Hypertension stable on diltiazem/valsartan * neuropathy on gabapentin BRIEF HOSPITAL COURSE [id number]-old admitted with acute influenza and complicated UTI with high- grade fever and weakness. started on Tamiflu. Continue antibiotic coverage for UTI. On supportive management 07/26-patient doing better. No overnight events. Improved mentation and tolerating physical therapy and diet. No family at bedside. Continue supportive treatment along with physical therapy. GNR on cultures. 07/27- patient doing well. Feeling a lot better. Persistent weakness. Klebsiella pneumoniae on cultures multidrug resistant sensitive to ceftriaxone. patient is requesting home health. No overnight fever chills nausea vomiting or concerns per staff 07/28- patient undergoing physical therapy. Afebrile. Ongoing antibiotic coverage. Possible discharge in 24 hours with home health. No active concerns per patient or staff. 07/29- patient doing well. No overnight events. no concerns per staff. Discharging with the detailed instructions as below. Continue antibiotics for additional 3 days. Follow-up recommendations as below Discharge diagnosis: complicated UTI, influenza - Time Spent with Patient Total time spent providing and/or coordinating discharge services: Medical - DS: Exam - Constitutional Vitals: Vital Signs Temp Pulse Resp BP Pulse Ox 07/28/16 23:53 97.8 F 55 L 16 155/90 95 07/28/16 20:00 98.0 F 62 16 142/87 94 07/28/16 16:07 97.8 F 56 L 16 152/94 96 07/28/16 12:00 97.6 F 48 L 18 149/68 94 Intake and Output 07/28/16 07/29/16 07/29/16 21:59 05:59 13:59 Intake Total 400 / 400 240 / 240 Output Total 800 / 800 Balance -400 / -400 240 / 240 Intake: Oral 400 / 400 240 / 240 Output: Void Amount 800 / 800 Other: Meal Dinner Percent of Meal Consumed 50% # Voids 2 Weight 158 lb Medical - DS: Data Labs on day of discharge: Labs from last 24 hours 07/29/16 07/29/16 05:00 05:00 WBC 4.5 RBC 4.20 Hgb 12.1 Hct 36.3 MCV 86.4 MCH 28.8 MCHC 33.3 RDW 12.5 Plt Count 193 MPV 8.5 Total Counted 100 Seg Neutrophils % 27 L Band Neutrophils % 7 Lymphocytes % 51 H Monocytes % (Manual) 7 Eosinophils % (Manual) 7 Basophils % (Manual) 1 Platelet Estimate Normal RBC Morphology Normal Sodium 143 Potassium 4.2 Chloride 103 Carbon Dioxide 26 Anion Gap 14.0 BUN 11 Creatinine 0.7 GFR Calculation 84 Glucose 77 Uric Acid 4.7 Calcium 8.7 Phosphorus 3.4 Magnesium 2.0 Total Bilirubin 0.3 Direct Bilirubin < 0.2 GGT 10 AST 14 ALT 8 Alkaline Phosphatase 63 Lactate Dehydrogenase 195 Total Protein 6.2 Albumin 3.7 Globulin 2.5 Albumin/Globulin Ratio 1.5 Triglycerides 223 H Medical - DS: A/P - Patient/Caregiver Discharge Instructions Activity: increase activity as tolerated Diet: Regular Diet Additional Instructions: Follow-up PCP in 5 days I recommend primary care physician to check CBC BMP UA as a posthospital follow- up Antibiotics for additional 3 days Continue aggressive bowel regimen to prevent constipation Continue fall precautions All meals on chair sitting upright at 90 degrees to prevent aspiration Return to ER if worsening fever chills shortness of breath, diarrhea, bleeding Review risk and side effect profile of medications including antibiotics. Side effect may include mild to severe reaction including rash, diarrhea, cdiff and even which can be prevented by close follow-up with PCP Refrain from smoking and alcohol Continue diet and activity as advised Discussed importance of medication adherence Please review medication list with patient prior to discharge Please schedule follow-up with PCP/Providers prior to discharge and provide printouts Portions of this chart may have been created with [employer] voice recognition software. Occasional wrong-word or ?sound-like? substitutions may have occurred due to the inherent limitations of voice recognition software. Please read the chart carefully and recognize, using context, where the substitutions have occurred. CC- PCP Prescriptions: Cefdinir 300 mg PO BID #6 capsule Oseltamivir Phosphate [Tamiflu] 75 mg PO BID #4 capsule - Problem Maintenance (1) Acute viral syndrome Status: Acute - Follow up Plan Follow up with: Melvin Hudson MD [Primary Care Provider] - (Left a message with Dr Hudson's office to set up an hospital follow-up appointment. If by Friday you don't get a call with an appointment, please call them) Disposition: Home, Self-Care Prognosis: Good Rehab Potential: Fair I certify that the patient requires SNF services: No Overall status at discharge: patient is progressing back to baseline Medical - DS: Qual - VTE Deep Vein Thrombosis/Pulmonary Embolism Present on Admission: No
[2016-07-29] MEDS: cefTRIAXone 2 GM in DEXTROSE 5% IN WATER 50 ML IV SCH (10:54)
== END 2016-07-29 12:30 | disposition home or self-care (01) | DRG 194 ==
LOC: MEDSUR 15:00 → ED 15:00 → MEDSUR 18:00
PROVIDERS: ADMIT Internal Medicine; ATTEND Internal Medicine